=== PATIENT | female | born 1935 | race Caucasian/White ===

== ENCOUNTER 2018-10-27 06:00 | Day surgery (SDC) | payer MEDICARE ==
[~2018-10-27] VITALS: Ht 162.6 cm; Wt 56.2 kg
[2018-10-27] MEDS ORDERED: SODIUM CHLORIDE 0.9% 1000ML 1,000 ML IV ONE (06:04)
[2018-10-27 08:05] VITALS: BP 147/56
[2018-10-27] MEDS ORDERED: LOSA1TAB42 PO (08:14)
[2018-10-27] MEDS ORDERED: SOUR1000 PO (08:14)
[2018-10-27] MEDS ORDERED: CHOL50004 PO (08:14)
[2018-10-27] MEDS ORDERED: RALO60TA13 PO (08:14)
[2018-10-27] MEDS ORDERED: CEPH500C2 PO (08:14)
[2018-10-27] MEDS ORDERED: OMEP40CA37 PO (08:14)
[2018-10-27] MEDS ORDERED: MULT-415 PO (08:14)
[2018-10-27] MEDS ORDERED: CALC-724 PO (08:14)
[2018-10-27] MEDS ORDERED: BIOT10005 PO (08:14)
[2018-10-27] MEDS ORDERED: FISH1CAP49 PO (08:14)
[2018-10-27] MEDS ORDERED: ASCO10007 PO (08:14)
[2018-10-27] MEDS ORDERED: LACT1CAP78 PO (08:14)
[2018-10-27] MEDS ORDERED: CYAN25002 SL (08:14)
[2018-10-27] MEDS ORDERED: PROPOFOL 10 MG/ML 20ML VIAL IV ONE (08:20)
[2018-10-27 08:36] VITALS: BP 130/65
[2018-10-27 08:40] VITALS: BP 133/67
[2018-10-27 08:45] VITALS: BP 132/69
[2018-10-27 08:50] VITALS: BP 140/70
--- NOTE | 2018-10-27 09:10 | NUR ---
ACTIVITY UP TO EDGE OF BED. DENIES DIZZINESS OR NAUSEA. UP TO CHAIR W/O COMPLICATIONS.
--- NOTE | 2018-10-27 09:16 | NUR ---
DISCHARGE DISCHARGE INSTRUCTIONS REVIEWED WITH PT AND COPY OF EGD REPORT. PT VERBALIZED UNDERSTANDING. OPPORTUNITY GIVEN TO ASK QUESTIONS. QUESTIONS ADDRESSED.
[2018-10-27 09:24] VITALS: BP 144/78
--- NOTE | 2018-10-27 09:37 | NUR ---
DISCHARGE PT AWAITING DR. PITTS TO SPEAK WITH HER.
--- NOTE | 2018-10-27 09:55 | NUR ---
DISCHARGE DR. PITTS IN TO SPEAK WITH PT.
--- NOTE | 2018-10-27 10:00 | NUR ---
DISCHARGE DISCHARGED VIA W/C. AWAKE IN NO ACUTE DISTRESS.
== END 2018-10-27 10:00 | disposition home or self-care (01) ==
LOC: ENDO 06:00
PROVIDERS: ATTEND Internal Medicine
DX: K29.50 Unspecified chronic gastritis without bleeding (principal); K44.9 Diaphragmatic hernia without obstruction or gangrene; K31.89 Other diseases of stomach and duodenum; I10 Essential (primary) hypertension; M19.90 Unspecified osteoarthritis, unspecified site; M81.0 Age-related osteoporosis without current pathological fracture; I73.00 Raynaud's syndrome without gangrene; Z79.899 Other long term (current) drug therapy; Z98.890 Other specified postprocedural states; Z90.710 Acquired absence of both cervix and uterus; Z98.49 Cataract extraction status, unspecified eye; Z88.8 Allergy status to other drugs, medicaments and biological substances; R00.1 Bradycardia, unspecified; I45.10 Unspecified right bundle-branch block
CPT/HCPCS: 43239; 43249; 88305; 93005; A4606; J2704; J7030